=== PATIENT | female | born 1950 | race Caucasian/White ===

== ENCOUNTER → 2023-11-14 | Day surgery (SDC) | payer MEDICARE ==
[2023-11-12 14:50] LABS: BASOPHILS % 0.7 % (0.0-1.0); EOSINOPHILS # (AUTO) 0.1 (0.0-0.4); HEMATOCRIT 28.5 % (34.2-44.1); HEMOGLOBIN 7.9 g/dL (12.0-16.0); LYMPHOCYTES # (AUTO) 0.7 (1.0-3.2); LYMPHOCYTES % 15.7 % (18.0-39.1); MEAN CORPUSCULAR HEMOGLOBIN 20.1 pg (28-32); MEAN CORPUSCULAR HGB CONC 27.7 g/dL (31-35); MEAN CORPUSCULAR VOLUME 72.5 fL (81-99); MONOCYTES # (AUTO) 0.5 (0.2-0.8); MONOCYTES % 11.1 % (4.4-11.3); NEUTROPHILS # (AUTO) 3.2 (2.1-6.9); NEUTROPHILS % 70.1 % (38.7-80.0); PLATELET COUNT 193 x10e3/uL (140-360); RED BLOOD COUNT 3.93 x10e6/uL (3.6-5.1); RED CELL DISTRIBUTION WIDTH 19.2 % (11.7-14.4); WHITE BLOOD COUNT 4.59 x10e3/uL (4.8-10.8)
[2023-11-12 15:05] LABS: ANION GAP 13.3 mmol/L (8-16); CREATININE, SERUM 1.22 mg/dL (0.57-1.11); POTASSIUM 4.3 mmol/L (3.5-5.1)
[~2023-11-14] MED LIST: ACETAMINOP160 MG/51 PO; ACETAMINOPHEN500 MG PO; ACULAR5 ML OU; ANEXSIA 5-3251 EACH PO; BALANCED SALT SOLN (OPTH) 15 ML BTL IO ONE; BUMETANIDE1 MG PO; BUPIVACAINE HC 0.75% PF 10ML VIAL INJ ONE; CALCIUM + D TA1 EACH PO; CARVEDILOL12.5 MG PO; COUGH SYRU100 MG/5 M PO; CYCLOPENTOLATE HCL 2% OPTH SOLN 2 ML BTL OP ONE; DOCUSATE SODIU100 MG PO; DULCOLAX10 MG PR; ELIQUIS5 MG PO; EPINEPHRINE HCL 1:1000 1ML 1 MG/ML AMP ONE; FLONASE16 GM INH; FLUOCINOLONE AC60 ML TOP; GABAPENTIN300 MG PO; GATIFLOXACIN(OPTH) 5 ML LIQD ONE; GLIPIZIDE5 MG PO; HUMALOG MI100 UNIT/2 SC; IBUPROFEN PO; IBUPROFEN200 MG PO; KETOCONAZOLE120 ML TOP; LACTULOSE10 GM/152 PO; LANTUS 3ML100 UNITS/ SC; LIDOCAINE 2% /EPINEPHRINE 20 ML SDV INJ ONE; LIDOCAINE HCL 2% LOCAL INJ 5 ML SDV VIAL INJ ONE; LIDOCAINE HCL-PF 4% 40 MG/1 ML 5ML AMP ONE; LOPERAMIDE2 MG PO; MECLIZINE HCL12.5 MG PO; METOPROLOL SUC100 MG PO; METOPROLOL SUCC50 MG PO; MONTELUKAST SOD10 MG PO; MUCINEX DM ER1 EACH PO; NEOMYCIN/POLYMYXIN/DEX (OPTH) 3.5 GM TUBE ONE; OZEMPIC0.25 MG/02 SC; PHENYLEPHRINE HCL 2 ML DROPS ONE; PILOCARPINE HCL(OPTH) 15 ML LIQD ONE; POTASSIUM; POTASSIUM CHLO20 ME1 PO; POVIDONE IODINE 5% (OPTH) 30 ML BTL ONE; PROAIR HFA INH8.5 GM IH; PROPOFOL IV EMULSION 10 MG/ML 20 ML VIAL ONE; SIMVASTATIN20 MG PO; SPIRONOLACTONE25 MG PO; TETRACAINE HCL 0.5% OPTH SOLN 4 ML BTL ONE; TRIAMCINOLONE A15 G2 TOP; ULTRAM 50MG50 MG PO; VICTOZA 2-0.6 MG/0.1; VITAMIN B-1100 M1 PO; VITAMIN C1000 MG PO; VITAMIN D3 MA125 MCG PO; XIFAXAN550 MG PO; Z IRON PO; Z.0.ACTOS45 MG PO; Z.0.DIGOXIN125 MCG PO; Z.0.FUROSEMIDE40 MG PO; Z.0.GLUCOPHAGE500 MG PO; Z.0.GLYBURIDE5 MG PO; Z.0.LIDODERM700 MG TOP; Z.0.LISINOPRIL20 MG PO; Z.0.PLAVIX75 MG PO; Z.0.SIMVASTATIN20 MG PO; Z.0.TRICOR145 MG PO; [UNRECOGNIZED DRUG - OTHER] PO; [UNRECOGNIZED DRUG - OTHER] PO; [UNRECOGNIZED DRUG - OTHER] PO
[2023-11-14] MEDS: LACTATED RINGER'S 1,000 ML ONE (11:47)
[2023-11-14 12:44] VITALS: TEMP 97.3
[2023-11-14 13:00] VITALS: BP 112/52; PULSE 70; RESP 16; O2SAT 100
== END | disposition home or self-care (01) ==
LOC: OR 08:54
PROVIDERS: ATTEND Ophthalmology
DX: H25.12 Age-related nuclear cataract, left eye (principal); G47.33 Obstructive sleep apnea (adult) (pediatric); I48.91 Unspecified atrial fibrillation; D64.9 Anemia, unspecified; E11.9 Type 2 diabetes mellitus without complications; I11.0 Hypertensive heart disease with heart failure; I50.9 Heart failure, unspecified; K21.9 Gastro-esophageal reflux disease without esophagitis; F03.90 Unspecified dementia, unspecified severity, without behavioral disturbance, psychotic disturbance, mood disturbance, and anxiety; Z91.048 Other nonmedicinal substance allergy status; Z01.812 Encounter for preprocedural laboratory examination; Z79.4 Long term (current) use of insulin; Z79.02 Long term (current) use of antithrombotics/antiplatelets; Z79.1 Long term (current) use of non-steroidal anti-inflammatories (NSAID); Z79.899 Other long term (current) drug therapy; Z86.73 Personal history of transient ischemic attack (TIA), and cerebral infarction without residual deficits
CPT/HCPCS: 36415; 66984; 80048; 85025; J0171; J2001 ×2; J2704; J7121; V2632